=== PATIENT | female | born 1955 | race Caucasian/White ===

== ENCOUNTER 2017-03-05 08:53 | Outpatient (CLI) | payer BC ==
[2017-03-05 16:25] LABS: ALT (SGPT) 13 U/L (8-55); AST (SGOT) 11 U/L (5-34); Albumin 4.5 g/dL (3.4-4.8); Alkaline Phosphatase 69 U/L (40-150); Anion Gap 13 mmol/L (10-20); BUN (Urea Nitrogen) 17 mg/dL (9.8-20.1); Bilirubin, Total 0.4 mg/dL (0.2-1.2); Calc. Creatinine Clearance 0 mL/min (70-130); Calcium 9.8 mg/dL (7.8-10.44); Carbon Dioxide 28 mmol/L (23-31); Cardiac Risk 3.9 (Less than 4.5); Chloride 106 mmol/L (98-107); Cholesterol 233 mg/dl (< 200 Desired); Estimated GFR-MDRD Greater than 90; Globulin 2.6 g/dL (2.4-3.5); Glucose 120 mg/dL (80-115); HDL Cholesterol 60 mg/dL (>60 Neg Risk); LDL Cholesterol, Calculated 151 mg/dL; Potassium 5.1 mmol/L (3.5-5.1); Protein, Total 7.1 g/dL (6.0-8.3); Sodium 142 mmol/L (136-145); Triglycerides 110 mg/dL (Less than 150)
== END 2017-03-05 08:54 | disposition home or self-care (01) ==
LOC: LABLEX 08:53
PROVIDERS: ATTEND Nurse Practitioner
DX: J44.9 Chronic obstructive pulmonary disease, unspecified (principal); K21.9 Gastro-esophageal reflux disease without esophagitis; E78.5 Hyperlipidemia, unspecified
CPT/HCPCS: 80053; 80061

== ENCOUNTER 2018-11-25 09:05 | Outpatient (CLI) | payer BC, MEDICARE ==
--- NOTE | 2018-11-25 17:42 | RAD ---
CHEST TWO VIEWS: 11/25/18 Comparison is made with the 01/04/14 study from [facility]. The heart is normal in size. The lungs are hyperexpanded but clear. No focal infiltrate, mass, or oth er acute pathology was appreciated. There are no effusions. The trachea is midline. Faint calcificati on is seen in the aortic arch. IMPRESSION: No acute thoracic finding. POS: HOME
== END 2018-11-25 09:06 | disposition home or self-care (01) ==
LOC: BURRAD 09:05
PROVIDERS: ATTEND Family Medicine
DX: R04.2 Hemoptysis (principal)
CPT/HCPCS: 71046

== ENCOUNTER 2018-12-25 13:51 | Outpatient (CLI) | payer BC, MEDICARE ==
--- NOTE | 2018-12-25 17:43 | RAD ---
There might be some marginal narrowing of the L1-L2 disc space, but the significance is unknown. Calc ification is seen in the aorta and iliac arteries. Arthritic changes are minimal to none. The SI join ts appear normal. No fracture was seen. IMPRESSION: No acute findings. POS: HOME
== END 2018-12-25 13:52 | disposition home or self-care (01) ==
LOC: BURRAD 13:51
PROVIDERS: ATTEND Nurse Practitioner Family
DX: M54.5 Low back pain (principal)
CPT/HCPCS: 72100

== ENCOUNTER 2019-03-24 09:56 | Outpatient (CLI) | payer BC, MEDICARE ==
--- NOTE | 2019-03-25 07:51 | ULT ---
BILATERAL CAROTID ULTRASOUND 03/24/19 Ultrasonography of the carotid and vertebral system was performed for evaluation of this patient with a TIA. The 2D images show a small amount of plaque around the bifurcation near each ECA, but there are no la rge obstructing plaques that were seen. Analysis of the right carotid system showed peak velocities o f 100/28 cm/s in the right ICA with a systolic velocity ratio of 1.12. These are normal values. Flows in the common and external carotid arteries were normal. Analysis of the left carotid system shows flows of 140/48 in the left internal carotid artery with a systolic velocity ratio of 1.35. These values would suggest a mild to moderate stenosis in the 50 to 60% range. Flows in the external and common carotid arteries are normal on this side. Vertebral flow is antegrade bilaterally. IMPRESSION: 50 to 60% stenosis of the left internal carotid artery. Exam otherwise unremarkable. POS: HOME
== END 2019-03-24 09:57 | disposition home or self-care (01) ==
LOC: BURULT 09:56
PROVIDERS: ATTEND Family Medicine
DX: G45.9 Transient cerebral ischemic attack, unspecified (principal); I65.22 Occlusion and stenosis of left carotid artery
CPT/HCPCS: 93306; 93880

== ENCOUNTER 2020-06-21 09:52 | Outpatient (CLI) | payer MEDICARE ==
--- NOTE | 2020-06-21 16:02 | CT ---
CT OF THE ABDOMEN AND PELVIS 06/21/20 There are no prior films available for comparison. This exam was prompted by a recent MRI of the lumb ar spine that noted more than the usual number of retroperitoneal nodes, though none of them were sig nificantly enlarged. Today's exam was done without IV contrast due to a contrast allergy. The lung bases are clear. The liver shows a 2.9 cm water density structure in the posterior right lob e with very smooth borders. It is almost certainly a hepatic cyst. Ultrasound might be confirmatory, but the average CT numbers in this were about +2 which would fit very well with a simple cyst. The sp briana, pancreas, gallbladder, adrenal glands, kidneys and abdominal aorta showed no acute findings wit hin the limitations of a noncontrast study. The bowel shows no overt inflammatory change, dilation, or melanie-inflammatory streaking. One might arg ue for some minimal thickening of folds in the right colon, but this finding is equivocal, at best. N o free air, or free fluid was seen. Regarding the retroperitoneum, there are indeed more small nodes than one often sees, however, all ap pear to be subcentimeter in size. Thus, this is a nonspecific finding. I do not see a plethora of mes enteric adenopathy or adenopathy elsewhere to raise significant concern. CT of the pelvis shows no pelvic masses, fluid collections, or inflammatory changes. The bony structu res showed no acute findings. IMPRESSION: 1. Presumed 2.9 cm hepatic cyst. See above. 2. Mild increase in numbers of small retroperitoneal nodes compared to normal, but as noted on t he MRI report, none are enlarged. I do not see any increase of nodes elsewhere. As such, the finding remains nonspecific and may or may not be connected to any active disease. POS: HOME
== END 2020-06-21 09:53 | disposition home or self-care (01) ==
LOC: BURCT 09:52
PROVIDERS: ATTEND Nurse Practitioner Family
DX: R59.1 Generalized enlarged lymph nodes (principal); K76.89 Other specified diseases of liver
CPT/HCPCS: 74176

== ENCOUNTER 2024-12-10 08:35 | Outpatient (CLI) | payer MEDICARE ==
[2024-12-10] MEDS ORDERED: Iopamidol 370 76% 100 ML VIAL ONE (14:41)
== END 2024-12-10 08:36 | disposition home or self-care (01) ==
LOC: BURCT 08:35
PROVIDERS: ATTEND Family Medicine
DX: Z01.818 Encounter for other preprocedural examination (principal); R91.8 Other nonspecific abnormal finding of lung field; R04.2 Hemoptysis
CPT/HCPCS: 36415; 71260; 82565; Q9967

== ENCOUNTER 2025-05-29 18:03 | Emergency (ER) | payer MEDICARE ==
[2025-05-29 18:36] LABS: #Basophils 0.3 thou/uL (0.0-0.2); #Eosinophils 0.1 thou/uL (0.0-0.7); #Lymphocytes 5.1 thou/uL (1.20-3.40); #Monocytes 0.7 thou/uL (0.11-0.59); #Neutrophils 6.1 thou/uL (1.40-6.50); %Basophils 2.6 % (0.0-1.0); %Eosinophils 1.2 % (0.0-10.0); %Lymphocytes 41.0 % (21.0-51.0); %Monocytes 5.9 % (0.0-10.0); %Neutrophils 49.3 % (42.0-75.0); Hematocrit 29.9 % (36.0-47.0); Hemoglobin 9.6 g/dL (12.0-16.0); Mean Corpuscular Hemoglobin 29.5 pg (27.0-31.0); Mean Corpuscular Volume 91.7 fl (78.0-98.0); Platelet Count 253 10x3/uL (130-400); Red Blood Cell (RBC) Count 3.26 mill/uL (4.20-5.40); White Blood Cell (WBC) Count 12.4 10x3/uL (4.8-10.8)
[2025-05-29 18:48] LABS: Bicarbonate (HCO3v) 22.0 mmol/L (22.0-28.0); CO2 Tension (PvCO2) 34.6 mmHg (42.0-51.0); Calcium, Ionized 1.22 mmol/L (1.15-1.33); Chloride 108 mmol/L (98-107); Hemoglobin - Calc 8.7 g/dL (12.0-16.0); Potassium 3.8 mmol/L (3.5-5.1); Sodium 140 mmol/L (138-145); T. Carbon Dioxide 23.1 mmol/L (22.0-28.0); vO2 Saturation-calc 75.5 % (60.0-85.0)
[2025-05-29 18:53] LABS: ALT (SGPT) Less than 7 U/L (Less than 34); AST (SGOT) 21 U/L (11-34); Albumin 3.6 g/dL (3.1-4.5); Alkaline Phosphatase 64 U/L (40-110); Anion Gap 17 mmol/L (10-20); BUN (Urea Nitrogen) 15 mg/dL (9.8-20.1); Bilirubin, Total 0.3 mg/dL (0.3-1.2); Calc. Creatinine Clearance 0 mL/min (70-130); Calcium 9.0 mg/dL (7.8-10.44); Carbon Dioxide 20 mmol/L (23-31); Chloride 110 mmol/L (98-107); Globulin 2.9 g/dL (2.4-3.5); Glucose 133 mg/dL (83-110); Potassium 3.9 mmol/L (3.5-5.1); Sodium 143 mmol/L (136-145)
[2025-05-29 18:54] LABS: Troponin I 0.020 ng/mL (< 0.028)
== END 2025-05-29 19:35 | disposition short-term general hospital (02) ==
LOC: BURERS 18:03
DX: R06.03 Acute respiratory distress (principal); R06.00 Dyspnea, unspecified; R79.89 Other specified abnormal findings of blood chemistry; R00.0 Tachycardia, unspecified; E11.9 Type 2 diabetes mellitus without complications; Z87.891 Personal history of nicotine dependence; Z79.84 Long term (current) use of oral hypoglycemic drugs
CPT/HCPCS: 71045; 80053; 82330; 82435; 82803; 83605; 84132; 84295; 84484; 85014; 85025; 85379; 87040; 93005